=== PATIENT | female | born 1955 | race Two or more races ===

== ENCOUNTER 2025-03-12 18:26 | Emergency (ER) | payer OTHER ==
[~2025-03-12] VITALS: Ht 157.5 cm; Wt 54.4 kg
[2025-03-12] MEDS ORDERED: METFORMIN HCL500 M3 PO (19:25)
[2025-03-12 20:21] LABS: BASO % 0.4 % (0.1-1.2); EOS # 0.10 (0.04-0.54); EOS % 1.2 % (0.7-7.0); LYMPH # 2.31 (1.18-3.74); LYMPH % 28.6 % (19.3-53.1); MEAN PLATELET VOLUME 9.10 fl (9.4-12.4); MONO # 0.61 (0.24-0.82); MONO % 7.5 % (4.7-12.5); NEUT # 5.02 (1.56-6.13); NEUT % 62.1 % (34.0-71.1); RED CELL DISTRIBUTION WIDTH 12.9 % (11.6-14.4)
[2025-03-12 21:04] LABS: INR 1.04
[2025-03-12 21:06] LABS: URINE APPEARANCE Clear; URINE BILIRRUBIN Negative (NEGATIVE); URINE BLOOD Negative; URINE COLOR Yellow; URINE GLUCOSE Negative (NEGATIVE); URINE KETONE Negative (NEGATIVE); URINE LEUKOCYTE Small; URINE NITRATE Negative; URINE PROTEIN Negative (NEGATIVE); URINE UROBILINOGEN 0.2 E.U./dl
[2025-03-12 21:10] LABS: ALT/SGPT 20 U/L (12-78); AST/SGOT 18 U/L (15-37); BILIRUBIN TOTAL 0.63 mg/dL (0.3-1.2); BUN CREA RATIO 21 (7.0-25.0); CREATININE SERUM 0.96 mg/dL (0.55-1.02); GFR 57.29; GLOBULINA 3.4 G/DL (2.4-3.5); GLUCOSE FASTING 177 mg/dL (65-100); OSMOLALITY SERUM 286 MOSM/KG (275-295)
[2025-03-12 21:11] LABS: URINE BACTERIA 95.9 uL (0.0-1933); URINE EPITHELIAL CELLS 6.4 uL (0.0-38.8); URINE WBC 24.1 uL (0.0-23.2)
[2025-03-12 21:17] LABS: URINE CAST 0.00 uL (0.0-1.40); URINE RBC 1.4 uL (0.0-20.8)
[2025-03-12] MEDS ORDERED: CEFTRIAXONE SODIUM 1,000 MG VIAL IM STA (22:02)
[2025-03-12] MEDS ORDERED: CIPRO500 MG PO (22:12)
[2025-03-12] MEDS ORDERED: PEPCID AC20 MG PO (22:12)
== END 2025-03-12 22:49 | disposition home or self-care (01) ==
LOC: ER 18:26
PROVIDERS: Physician Assistant Medical
DX: N39.0 Urinary tract infection, site not specified (principal); R07.9 Chest pain, unspecified; R00.2 Palpitations; E11.9 Type 2 diabetes mellitus without complications; Z79.84 Long term (current) use of oral hypoglycemic drugs